=== PATIENT | male | born 1970 | race Caucasian/White ===

== ENCOUNTER 2017-05-10 15:05 | Inpatient (IN) | payer OTHER ==
[2017-05-10 15:29] VITALS: BMI 28.1
--- NOTE | 2017-05-10 20:07 | CP.PCM.HP ---
History of Present Illness - History of Present Illness History of Present Illness: 46 yo male with no significant PMH fell on top of a dumpster truck about 10 feet high landing on his left side. Following his fall were heavy metals which landed on his legs. Patient sustained fracture of right femural shaft and left femural neck. He was brought to [facility] where he had retrograde IM nailing of the right femural fracture and ORIF of the left femural neck fracture. He was brought here to [facility] for acute rehab. Present on Admission - Present on Admission Any Indicators Present on Admission: No History of DVT/PE: No History of Uncontrolled Diabetes: No Urinary Catheter: No Decubitus Ulcer Present: No Review of Systems - Review of Systems All systems: reviewed and no additional remarkable complaints except (aside from those mentioned above 14 point system review were negative by me) Past Patient History - Infectious Disease Hx of Infectious Diseases: None - Tetanus Immunizations Tetanus Immunization: Unknown - Past Medical History & Family History Past Medical History?: No - Past Social History Smoking Status: Heavy Smoker > 10 Cigarettes Daily Alcohol: None Drugs: Cannabis Home Situation {Lives}: With Family - PULMONARY Hx Respiratory Disorders: No - NEUROLOGICAL Hx Neurological Disorder: No - HEENT Hx HEENT Problems: No - RENAL Hx Chronic Kidney Disease: No - ENDOCRINE/METABOLIC Hx Endocrine Disorders: No - HEMATOLOGICAL/ONCOLOGICAL Hx Blood Disorders: No - INTEGUMENTARY Hx Dermatological Problems: Yes Other/Comment: Lipoma right forearm - MUSCULOSKELETAL/RHEUMATOLOGICAL Hx Musculoskeletal Disorders: No - GASTROINTESTINAL Hx Gastrointestinal Disorders: No - GENITOURINARY/GYNECOLOGICAL Hx Genitourinary Disorders: No - PSYCHIATRIC Hx Psychophysiologic Disorder: No Hx Substance Use: No - SURGICAL HISTORY Hx Surgeries: No - ANESTHESIA Hx Anesthesia: No Meds Allergies/Adverse Reactions: Allergies Allergy/AdvReac Type Severity Reaction Status Date / Time No Known Allergies Allergy Verified 09/27/15 13:21 Physical Exam - Constitutional Appears: No Acute Distress - Head Exam Head Exam: ATRAUMATIC - Eye Exam Eye Exam: absent: Scleral icterus - ENT Exam ENT Exam: Mucous Membranes Moist - Neck Exam Neck exam: Negative for: Meningismus - Respiratory Exam Respiratory Exam: absent: Rhonchi, Wheezes, Respiratory Distress - Cardiovascular Exam Cardiovascular Exam: REGULAR RHYTHM, +S1, +S2 - GI/Abdominal Exam GI & Abdominal Exam: Soft. absent: Tenderness - Rectal Exam Rectal Exam: Deferred - Extremities Exam Extremities exam: Negative for: full ROM (limited ROM on both LE) - Back Exam Back exam: absent: tenderness - Psychiatric Exam Psychiatric exam: Normal Affect - Skin Skin Exam: Dry, Intact Assessment & Plan - Assessment and Plan (Free Text) Assessment: 46 yo male with no significant PMH fell on top of a dumpster truck about 10 feet high landing on his left side. Following his fall were heavy metals which landed on his legs. Patient sustained fracture of right femural shaft and left femural neck. He was brought to [facility] where he had retrograde IM nailing of the right femural fracture and ORIF of the left femural neck fracture. He was brought here to [facility] for acute rehab. 1. Bilateral Femural Fracture physiatry consult with Dr Subramanian for PT/OT evaluation and management pain management 2. DVT prophylaxis Lovenox 40mg SC daily
[2017-05-10] MEDS: oxyCODONE 10 mg ER Tab (oxyCONTIN) PO SCH (22:17)
[2017-05-11 06:41] LABS: HEMOGLOBIN 10.8 g/dL (12.0-18.0); MEAN CELL VOLUME 85.3 fl (80.0-94.0); MEAN CORPUSCULAR HEMOGLOBIN 27.6 pg (27.0-31.0); MEAN CORPUSCULAR HGB CONC 32.3 g/dL (33.0-37.0); RBC 3.92 Mil/uL (4.40-5.90); RED CELL DISTRIBUTION WIDTH 13.9 % (11.5-14.5); WHITE BLOOD COUNT 17.7 K/uL (4.8-10.8)
[2017-05-11 06:48] LABS: ALB/GLOB RATIO 1.1 (1.0-2.1); ALBUMIN 3.7 g/dL (3.5-5.0); ALT/SGPT 108 U/L (21-72); AST/SGOT 59 U/L (17-59); BLOOD UREA NITROGEN 14 mg/dl (9-20); CALCIUM 8.9 mg/dL (8.4-10.2); GFR AFRICAN-AMERICAN > 60; GFR NON-AFRICAN AMERICAN > 60
[2017-05-11] MEDS: oxyCODONE 10 mg ER Tab (oxyCONTIN) PO SCH ×2 (08:03→20:32)
[2017-05-11] MEDS: Enoxaparin 40 mg Syringe SC SCH (08:05)
[2017-05-11 15:58] LABS: URINE BILIRUBIN NEGATIVE (NEGATIVE); URINE BLOOD NEGATIVE (NEGATIVE); URINE CLARITY CLEAR (Clear); URINE COLOR YELLOW (YELLOW); URINE GLUCOSE (UA) NEG (Normal); URINE LEUKOCYTE ESTERASE NEG Leu/uL (Negative); URINE PROTEIN NEGATIVE (NEGATIVE)
--- NOTE | 2017-05-11 17:46 | PCM.OPOC ---
Physiatry Overall Plan of Care - Overall Plan of Care Estimated Length of Stay in Weeks: 3 Rehab Impairment: Mobility, Gait, Balance Etiologic Diagnosis: Hip/Knee Surgery Rehab/Medical Prognosis: Fair - Anticipated Interventions Physical Therapy:: Yes Occupational Therapy:: Yes Speech Therapy:: No Recreational Therapy:: Yes - Therapy Goals Bed Mobility: Supervision Ambulation: Supervision Functional Positional Changes:: Supervision - Discharge Plan Identification of Barriers to Discharge: Home Situation (many steps) Discharge Destination: Home
--- NOTE | 2017-05-11 17:48 | CP.PCM.CON ---
History of Present Illness - History of Present Illness History of Present Illness: Dr Subramanian PMR consultation on Janes Mccoy, born 1970,who has been admitted to [facility] for acute inpatient rehabilitation following a fall with bilateral femoral fractures for which he underwent ORIF/nailing. WBAT right LE and TTWB left LE Review of Systems - Constitutional Constitutional: absent: Anorexia, Chills - EENT Eyes: absent: Blind Spots, Blurred Vision Ears: absent: Decreased Hearing, Ear Discharge Nose/Mouth/Throat: absent: Nasal Congestion - Cardiovascular Cardiovascular: absent: Chest Pain, Dyspnea on Exertion - Respiratory Respiratory: absent: Dyspnea, Hemoptysis - Gastrointestinal Gastrointestinal: absent: Belching, Constipation - Musculoskeletal Musculoskeletal: Abnormal Gait, Muscle Weakness - Integumentary Integumentary: Other (surgical incisions bilateral LE). absent: Bleeding Lesions - Neurological Neurological: absent: Abnormal Movements, Confusion, Disequilibrium, Numbness - Psychiatric Psychiatric: absent: Anxiety Past Patient History - Infectious Disease Hx of Infectious Diseases: None - Tetanus Immunizations Tetanus Immunization: Unknown - Past Medical History & Family History Past Medical History?: No - Past Social History Smoking Status: Heavy Smoker > 10 Cigarettes Daily Drugs: Cannabis Home Situation {Lives}: With Family (+ steps) - CARDIAC Other/Comment: orthostatic hypotension - PULMONARY Hx Respiratory Disorders: No - NEUROLOGICAL Hx Neurological Disorder: No - HEENT Hx HEENT Problems: No - RENAL Hx Chronic Kidney Disease: No - ENDOCRINE/METABOLIC Hx Endocrine Disorders: No - HEMATOLOGICAL/ONCOLOGICAL Hx Blood Disorders: No - INTEGUMENTARY Hx Dermatological Problems: Yes Other/Comment: Lipoma right forearm - MUSCULOSKELETAL/RHEUMATOLOGICAL Hx Musculoskeletal Disorders: No - GASTROINTESTINAL Hx Gastrointestinal Disorders: No - GENITOURINARY/GYNECOLOGICAL Hx Genitourinary Disorders: No - PSYCHIATRIC Hx Psychophysiologic Disorder: No Hx Substance Use: No - SURGICAL HISTORY Hx Surgeries: No - ANESTHESIA Hx Anesthesia: No Meds Allergies/Adverse Reactions: Allergies Allergy/AdvReac Type Severity Reaction Status Date / Time No Known Allergies Allergy Verified 09/27/15 13:21 - Medications Medications: Current Medications Acetaminophen (Tylenol 325mg Tab) 975 mg PO Q6 PRN PRN Reason: Other Last Admin: 05/11/17 13:11 Dose: 975 mg Diphenhydramine HCl (Benadryl) 25 mg PO Q6H PRN PRN Reason: Itching or Sleep Docusate Sodium (Colace) 100 mg PO BID [facility] Last Admin: 05/11/17 17:01 Dose: 100 mg Enoxaparin Sodium (Lovenox) 40 mg SC DAILY [facility] PRN Reason: Protocol Last Admin: 05/11/17 08:05 Dose: 40 mg Nicotine (Nicoderm Cq) 1 patch TD DAILY [facility] Oxycodone HCl (Oxycontin Extended Release Tab) 10 mg PO Q12 [facility] Stop: 05/13/17 21:01 Last Admin: 05/11/17 08:03 Dose: 10 mg Sennosides (Senokot Tab) 17.2 mg PO HS PRN PRN Reason: Constipation Physical Exam - Constitutional Appears: Well, Non-toxic, No Acute Distress - Head Exam Head Exam: ATRAUMATIC, NORMAL INSPECTION, NORMOCEPHALIC - Eye Exam Eye Exam: EOMI Pupil Exam: NORMAL ACCOMODATION - ENT Exam ENT Exam: Mucous Membranes Moist - Respiratory Exam Respiratory Exam: NORMAL BREATHING PATTERN - Cardiovascular Exam Cardiovascular Exam: REGULAR RHYTHM - GI/Abdominal Exam GI & Abdominal Exam: absent: Distended, Firm - Extremities Exam Extremities exam: Positive for: normal inspection. Negative for: calf tenderness, joint swelling, pedal edema - Neurological Exam Neurological exam: Alert, CN II-XII Intact, Oriented x3 - Psychiatric Exam Psychiatric exam: Normal Affect, Normal Mood Results - Vital Signs Recent Vital Signs: Last Vital Signs Temp 98.2 F 05/11/17 08:35 Pulse 101 H 05/11/17 09:15 Resp 20 05/11/17 08:35 BP 141/84 05/11/17 08:35 Pulse Ox 98 05/11/17 15:10 - Labs Result Diagrams: 05/11/17 05:20 05/11/17 05:20 Labs: Laboratory Results - last 24 hr 05/11/17 05/11/17 05/11/17 05:20 05:20 15:33 WBC 17.7 H RBC 3.92 L Hgb 10.8 L Hct 33.5 L MCV 85.3 MCH 27.6 MCHC 32.3 L RDW 13.9 Plt Count 531 H Sodium 135 Potassium 4.3 Chloride 98 Carbon Dioxide 25 Anion Gap 16 BUN 14 Creatinine 1.0 Est GFR ( Amer) > 60 Est GFR (Non-Af Amer) > 60 Random Glucose 109 Calcium 8.9 Total Bilirubin 1.0 AST 59 ALT 108 H Alkaline Phosphatase 61 Total Protein 7.0 Albumin 3.7 Globulin 3.3 Albumin/Globulin Ratio 1.1 Urine Color Yellow Urine Clarity Clear Urine pH 6.0 Ur Specific [place] 1.010 Urine Protein Negative Urine Glucose (UA) Neg Urine Ketones Negative Urine Blood Negative Urine Nitrate Negative Urine Bilirubin Negative Urine Urobilinogen 2.0 Ur Leukocyte Esterase Neg Urine RBC (Auto) < 1 Urine Microscopic WBC 1 Assessment & Plan - Assessment and Plan (Free Text) Assessment: 46 year old male with bilateral femur fractures. He has had bilateral ORIF/ nailing PT/OT to continue to help increase functional independence Team conference for d/c planning Pain: controlled Vascular: no evidence of DVT GI: No evidence of constipation or diarrhea Patient is an excellent acute rehabilitation candidate and will have focused pain management, wound care, PT, OT and recreational therapy to help facilitate a safe and appropriate d/c plan
[2017-05-12] MEDS: oxyCODONE 10 mg ER Tab (oxyCONTIN) PO SCH ×2 (08:20→21:20)
[2017-05-12] MEDS: Enoxaparin 40 mg Syringe SC SCH (08:21)
--- NOTE | 2017-05-12 10:18 | CP.PCM.PN ---
Subjective - Date & Time of Evaluation Date of Evaluation: 05/12/17 Time of Evaluation: 10:00 - Subjective Subjective: Patient seen and examined. Trying to get to sleep since he was unable to sleep last night because of the noise of the other patient next door. Claimed his pain was very tolerable Objective - Vital Signs/Intake and Output Vital Signs (last 24 hours): Temp Pulse Resp BP Pulse Ox 97.9 F 90 20 137/79 98 05/12/17 09:25 05/12/17 09:25 05/12/17 09:25 05/12/17 09:25 05/12/17 09:25 - Medications Medications: Current Medications Acetaminophen (Tylenol 325mg Tab) 975 mg PO Q6 PRN PRN Reason: Other Last Admin: 05/11/17 13:11 Dose: 975 mg Diphenhydramine HCl (Benadryl) 25 mg PO Q6H PRN PRN Reason: Itching or Sleep Docusate Sodium (Colace) 100 mg PO BID [facility] Last Admin: 05/12/17 08:22 Dose: 100 mg Enoxaparin Sodium (Lovenox) 40 mg SC DAILY [facility] PRN Reason: Protocol Last Admin: 05/12/17 08:21 Dose: 40 mg Nicotine (Nicoderm Cq) 1 patch TD DAILY [facility] Last Admin: 05/12/17 08:21 Dose: 1 patch Oxycodone HCl (Oxycontin Extended Release Tab) 10 mg PO Q12 [facility] Stop: 05/13/17 21:01 Last Admin: 05/12/17 08:20 Dose: 10 mg Sennosides (Senokot Tab) 17.2 mg PO HS PRN PRN Reason: Constipation Tramadol HCl (Ultram) 50 mg PO Q4 PRN PRN Reason: Pain 5-10/10 Last Admin: 05/12/17 06:27 Dose: 50 mg - Labs Labs: 05/11/17 05:20 05/11/17 05:20 - Constitutional Appears: No Acute Distress - Head Exam Head Exam: ATRAUMATIC - Eye Exam Eye Exam: absent: Scleral icterus - ENT Exam ENT Exam: Mucous Membranes Moist - Neck Exam Neck Exam: absent: Meningismus - Respiratory Exam Respiratory Exam: absent: Rhonchi, Wheezes, Respiratory Distress - Cardiovascular Exam Cardiovascular Exam: REGULAR RHYTHM, +S1, +S2 - GI/Abdominal Exam GI & Abdominal Exam: Soft. absent: Tenderness - Rectal Exam Rectal Exam: Deferred - Extremities Exam Extremities Exam: absent: Full ROM (limited ROM on both lower extremeties) - Back Exam Back Exam: absent: tenderness - Neurological Exam Neurological Exam: Alert, Oriented x3 - Psychiatric Exam Psychiatric exam: Normal Affect - Skin Skin Exam: Dry, Intact Assessment and Plan - Assessment and Plan (Free Text) Assessment: 46 yo male with no significant PMH fell on top of a dumpster truck about 10 feet high landing on his left side. Broke both femur when heavy landed on him following the fall. Had IM nailing of the right femural fracture and ORIF of the left femural neck fracture at [facility] on 05/03/2017. 1. Bilateral Femural Fracture physiatry consult with Dr Subramanian continue PT/OT pain controlled 2. DVT prophylaxis Lovenox 40mg SC daily
[2017-05-12 11:18] LABS: BASO # 0.2 K/uL (0.0-0.2); BASO % 1.2 % (0.0-2.0); EOS # 0.4 K/uL (0.0-0.7); EOS % 2.4 % (0.0-4.0); HEMOGLOBIN 11.3 g/dL (12.0-18.0); LYMPH # 3.2 K/uL (1.0-4.3); LYMPH % 17.3 % (20.0-40.0); MEAN CELL VOLUME 85.4 fl (80.0-94.0); MEAN CORPUSCULAR HGB CONC 32.8 g/dL (33.0-37.0); MEAN PLATELET VOLUME 8.1 fl (7.2-11.7); MONO % 10.8 % (0.0-10.0); NEUT # 12.8 K/uL (1.8-7.0); NEUT % 68.3 % (50.0-75.0); NRBC % 0.1 % (0.0-0.0); PLATELET COUNT 609 K/uL (130-400); RBC 4.02 Mil/uL (4.40-5.90); WHITE BLOOD COUNT 18.7 K/uL (4.8-10.8)
[2017-05-12 12:04] LABS: BANDS 1 % (0-2); EOSINOPHIL 3 % (0-7); LYMPHOCYTE 19 % (20-50); MONOCYTE 9 % (0-10); MYELOCYTE 2 % (0-0); NEUTROPHIL 64 % (42-75); REACTIVE LYMPHOCYTES 2 % (0-0); TOTAL CELLS COUNTED 100
[2017-05-12 12:05] LABS: PLATELET ESTIMATE INCREASED (NORMAL)
[2017-05-12 12:09] LABS: ANISOCYTOSIS SLIGHT; LARGE PLATELETS PRESENT; OVALOCYTES SLIGHT; POIKILOCYTOSIS SLIGHT
--- NOTE | 2017-05-12 13:00 | RAD ---
HISTORY: Elevated WBC COMPARISON: No prior. TECHNIQUE: Chest PA and lateral FINDINGS: LUNGS: No active pulmonary disease. PLEURA: No significant pleural effusion identified. No pneumothorax apparent. CARDIOVASCULAR: Normal. OSSEOUS STRUCTURES: No significant abnormalities. VISUALIZED UPPER ABDOMEN: Nonspecific colonic gaseous distention. OTHER FINDINGS: None. IMPRESSION: No active disease.
--- NOTE | 2017-05-12 16:54 | CP.PCM.PN ---
Subjective - Date & Time of Evaluation Date of Evaluation: 05/12/17 Time of Evaluation: 16:53 - Subjective Subjective: Patient seen in the room in good spirits no BM in last 24 hours but doesn't want anything extra pain is well controlled very happy with current care to this point no numbness continue current care Objective - Vital Signs/Intake and Output Vital Signs (last 24 hours): Temp Pulse Resp BP Pulse Ox 97.9 F 90 20 137/79 98 05/12/17 09:25 05/12/17 09:25 05/12/17 09:25 05/12/17 09:25 05/12/17 09:25 - Medications Medications: Current Medications Diphenhydramine HCl (Benadryl) 25 mg PO Q6H PRN PRN Reason: Itching or Sleep Docusate Sodium (Colace) 100 mg PO BID [facility] Last Admin: 05/12/17 08:22 Dose: 100 mg Enoxaparin Sodium (Lovenox) 40 mg SC DAILY [facility] PRN Reason: Protocol Last Admin: 05/12/17 08:21 Dose: 40 mg Nicotine (Nicoderm Cq) 1 patch TD DAILY [facility] Last Admin: 05/12/17 08:21 Dose: 1 patch Oxycodone HCl (Oxycontin Extended Release Tab) 10 mg PO Q12 [facility] Stop: 05/13/17 21:01 Last Admin: 05/12/17 08:20 Dose: 10 mg Sennosides (Senokot Tab) 17.2 mg PO HS PRN PRN Reason: Constipation Tramadol HCl (Ultram) 50 mg PO Q4 PRN PRN Reason: Pain 4-10/10. - Labs Labs: 05/12/17 11:05 05/11/17 05:20
[2017-05-13] MEDS: Enoxaparin 40 mg Syringe SC SCH (08:43)
[2017-05-13] MEDS: oxyCODONE 10 mg ER Tab (oxyCONTIN) PO SCH ×2 (08:43→21:07)
[2017-05-14 07:11] LABS: MEAN CELL VOLUME 85.7 fl (80.0-94.0); MEAN CORPUSCULAR HEMOGLOBIN 28.2 pg (27.0-31.0); MEAN CORPUSCULAR HGB CONC 32.9 g/dL (33.0-37.0); RBC 3.89 Mil/uL (4.40-5.90); RED CELL DISTRIBUTION WIDTH 14.4 % (11.5-14.5); WHITE BLOOD COUNT 16.2 K/uL (4.8-10.8)
[2017-05-14 07:18] LABS: BLOOD UREA NITROGEN 14 mg/dl (9-20); GFR AFRICAN-AMERICAN > 60; GFR NON-AFRICAN AMERICAN > 60
[2017-05-14] MEDS: Enoxaparin 40 mg Syringe SC SCH (08:16)
[2017-05-14] MEDS: oxyCODONE 10 mg ER Tab (oxyCONTIN) PO SCH ×2 (08:16→21:11)
[2017-05-15] MEDS: oxyCODONE 10 mg ER Tab (oxyCONTIN) PO SCH ×2 (08:33→20:01)
[2017-05-15] MEDS: Enoxaparin 40 mg Syringe SC SCH (08:37)
--- NOTE | 2017-05-15 17:08 | CP.PCM.PN ---
Subjective - Date & Time of Evaluation Date of Evaluation: 05/15/17 Time of Evaluation: 10:15 - Subjective Subjective: Patient seen and examined. Denied any complaint but nurse claimed he had no BM for 3 days. Objective - Vital Signs/Intake and Output Vital Signs (last 24 hours): Temp Pulse Resp BP Pulse Ox 98.5 F 94 H 20 138/82 99 05/15/17 10:00 05/15/17 10:00 05/15/17 10:00 05/15/17 10:00 05/15/17 10:00 - Medications Medications: Current Medications Diphenhydramine HCl (Benadryl) 25 mg PO Q6H PRN PRN Reason: Itching or Sleep Docusate Sodium (Colace) 100 mg PO BID [facility] Last Admin: 05/15/17 16:36 Dose: 100 mg Enoxaparin Sodium (Lovenox) 40 mg SC DAILY [facility] PRN Reason: Protocol Last Admin: 05/15/17 08:37 Dose: 40 mg Nicotine (Nicoderm Cq) 1 patch TD DAILY [facility] Last Admin: 05/15/17 08:35 Dose: 1 patch Oxycodone HCl (Oxycontin Extended Release Tab) 10 mg PO Q12 [facility] Stop: 05/18/17 21:01 Sennosides (Senokot Tab) 17.2 mg PO HS [facility] Tramadol HCl (Ultram) 50 mg PO Q4 PRN PRN Reason: Pain 4-10/10. Last Admin: 05/15/17 14:53 Dose: 50 mg - Labs Labs: 05/14/17 06:30 05/14/17 06:30 - Constitutional Appears: No Acute Distress - Head Exam Head Exam: ATRAUMATIC - Eye Exam Eye Exam: absent: Scleral icterus - ENT Exam ENT Exam: Mucous Membranes Moist - Neck Exam Neck Exam: absent: Meningismus - Respiratory Exam Respiratory Exam: absent: Rhonchi, Wheezes, Respiratory Distress - Cardiovascular Exam Cardiovascular Exam: REGULAR RHYTHM, +S1, +S2 - GI/Abdominal Exam GI & Abdominal Exam: Soft. absent: Tenderness - Rectal Exam Rectal Exam: Deferred - Neurological Exam Neurological Exam: Alert, Oriented x3 - Psychiatric Exam Psychiatric exam: Normal Affect - Skin Skin Exam: Dry, Intact Assessment and Plan - Assessment and Plan (Free Text) Assessment: 46 yo male with no significant PMH fell on top of a dumpster truck about 10 feet high landing on his left side. Broke both femur when heavy landed on him following the fall. Had IM nailing of the right femural fracture and ORIF of the left femural neck fracture at [facility] on 05/03/2017. 1. Bilateral Femural Fracture physiatry consult with Dr Moris starr PT/OT pain tolerable 2. DVT prophylaxis Lovenox 40mg SC daily
[2017-05-16] MEDS: Enoxaparin 40 mg Syringe SC SCH (08:35)
[2017-05-16] MEDS: oxyCODONE 10 mg ER Tab (oxyCONTIN) PO SCH ×2 (08:37→21:09)
--- NOTE | 2017-05-16 13:08 | PSY.TMCNF ---
Nursing - Vital Signs Vital Signs (Last 8 hours): Vital Signs 05/16/17 07:56 Temperature 97.9 F Pulse Rate 86 Respiratory 20 Rate Blood Pressure 134/76 O2 Sat by Pulse 100 Oximetry Pain: 4 - Medications/Other Issues Comment: to follow as per nutrition protocol - Skin Incision Site: Bilateral upper thigh Dressing Status: Changed Incision: Sutures Intact, No Drainage Noted Incision Line Treatment: Cleanse with NS and cover with dry dressing then paper tape. - Bladder Management Bladder Pattern: Normal Voiding Method: Toilet, Urinal - Bowel Management Bowel Pattern: Constipated - Goals/Time Frame Comments: Pt was seen awake and alert sitting in his wheelchair in his room. Pt agreeable to evaluation session. Pt reported that his nickname that his friends call him is "Bernie"Pt was able to identify his leisure interests such as playing [id number], cards, spending time with family/friends, watching television , and likes crossword puzzles. Pt reported he does not have much time for leisure activities 2' work. Pt stated that he fell at work and that his job requires physical endurance and strength. Pt's mood was stable-positive throughout visit. Physical Therapy - Bed Mobility Bed Mobility: Supervision, Verbal Cues Comment: with use of trapeze. CG/min A to lift LLE back into bed - Transfers Wheelchair to Mat: Supervision, Verbal Cues Sit to Stand: Supervision, Verbal Cues Comment: crutches and RW - Ambulation Level of Assistance: Supervision, Verbal Cues, Contact Guard Distance (ft.): 125 Assistive Devices: Crutches, Rolling Walker Orthoses: n/a Comment: -125 feet with RW with CS, VCs to properly adhere to 30lb weight bearing LLE and to complete step to pattern leading with LLE; very slow gait speed. -125 feet with B axillary crutches. -educated patient on 3 point step to gait pattern; patient combines 4 point pattern and 3 point pattern requiring frequent cues to recall to place LLE anterior before RLE and to adhere to weight bearing precautions as ordered by surgeon. -slow gait with VCs for reduced leaning on crutches in axillary; cues for upright gaze and hip extension - Stair Negotiation Stairs: Level of Assistance: Supervision, Verbal Cues, Contact Guard Stairs: Assistive Devices: Left Handrail, Right Handrail, Crutches Comment: -asc/desc 2 8inch steps with L rail on ascent/crutch on R and then R rail on descent/crutch on L to mimic home set-up; patient did so with step to pattern ascending with RLE first and descend with LLE first --> demonstrated safety and then negotiated 1 full flight of 8 inch steps. -very slow speed with repeated cues and education to adhere to proper sequencing and ensure he is not placing too much weight on LLE - Standing Balance Static Stand: Supervision Dynamic Stand: Supervision, Contact Guard Assist - Pain Management Techniques: Medication - Insight/Carryover Insight/Carryover: Good - Patient/Family Education Comment: WBing education, pain mgmt - Assessment/Plan Assessment: precautions TTWBing LLE, WBAT R LE. -Patient is 46 yo m undergoing acute rehab at [facility] s/p bilateral femoral fracture. Pt presents with pain B LEs and pain (L) forearm, impaired coordination and dynamic standing balance affecting patient's ability to complete his self care routine safely and effectively. Mr. Mccoy will benefit from skilled OT services 5-6x/ week to improve patient's dynamic standing balance , activity tolerance and improve pain levels which primarily inhibit pts standing tolerance . Pt will also benefit from DME training to reduce risk of patient falling at home and improve (I) with iadls . - Goals Timeframe: 2 weeks Goals: mod I transfers. Mod I functional mobility. Mod I self care. Mod I toileting. Mod I light home mgmt - Provider Therapist: Lili Vickers PT, DPT License Number: [id number] Occupational Therapy - Arousal/Attention/Orientation Patient Orientation: Person, Place, Time, Appropriate to Age, Appropriate to Situation - ADL/IADL Self Feeding: Set-up Help Grooming: Set-up Help Bathing-Upper Extremity: Supervision Bathing-Lower Extremity: Minimal Assistance Dressing-Upper Extremity: Set-up Help Dressing-Lower Extremity: Minimal Assistance - Sitting Balance Static Sitting: Independent without upper extremity support Dynamic Sitting: Requires supervision - Transfers Wheelchair to Bed Transfers: Supervision Toilet Transfers: Supervision - Wheelchair Management Level of Assistance: Not Applicable - Upper Extremity Status Right Upper Extremity Comment: WFL Left Upper Extremity Comment: WFL - Pain Alleviating Techniques: Medication - Insight/Carryover Insight/Carryover: Good - Patient/Family Education Comment: WBing education, pain mgmt - Assessment/Plan Assessment: precautions TTWBing LLE, WBAT R LE. -Patient is 46 yo m undergoing acute rehab at [facility] s/ bilateral femoral fracture. Pt presents with pain B LEs and pain (L) forearm, impaired coordination and dynamic standing balance affecting patient's ability to complete his self care routine safely and effectively. Mr. Mccoy will benefit from skilled OT services 5-6x/ week to improve patient's dynamic standing balance , activity tolerance and improve pain levels which primarily inhibit pts standing tolerance . Pt will also benefit from DME training to reduce risk of patient falling at home and improve (I) with iadls . - Goals Timeframe: 2 weeks Goals: mod I transfers. Mod I functional mobility. Mod I self care. Mod I toileting. Mod I light home mgmt - Provider Therapist: DAMI Bowens/Naomi License Number: [id number] Speech Therapy - Plan Assessment: precautions TTWBing LLE, WBAT R LE. -Patient is 46 yo m undergoing acute rehab at [facility]/ bilateral femoral fracture. Pt presents with pain B LEs and pain (L) forearm, impaired coordination and dynamic standing balance affecting patient's ability to complete his self care routine safely and effectively. Mr. Mccoy will benefit from skilled OT services 5-6x/ week to improve patient's dynamic standing balance , activity tolerance and improve pain levels which primarily inhibit pts standing tolerance . Pt will also benefit from DME training to reduce risk of patient falling at home and improve (I) with iadls . Recreational Therapy - Participation Participation: Participates in Individual and/or Group Sessions, Monitors His/ Her Own Leisure Time - Attendance Attendance: 3-5 times per week - Activities Leisure Activities: Cards and Games - Socialization Level of Socialization: Initiates/interacts freely with care givers and peer - Diversional Time Diversional Time: television, dominoes - Assessment Assessment/Plan: precautions TTWBing LLE, WBAT R LE. -Patient is 46 yo m undergoing acute rehab at [facility] s/ bilateral femoral fracture. Pt presents with pain B LEs and pain (L) forearm, impaired coordination and dynamic standing balance affecting patient's ability to complete his self care routine safely and effectively. Mr. Mccoy will benefit from skilled OT services 5-6x/ week to improve patient's dynamic standing balance , activity tolerance and improve pain levels which primarily inhibit pts standing tolerance . Pt will also benefit from DME training to reduce risk of patient falling at home and improve (I) with iadls . - Provider Therapist: Libertad Cunningham, [employer] #[id number] Nutrition - Current Diet Current Diet/ Supplement/ Feedings: Regular diet - Appetite Percent Meal Consumed: 75-100% - Assessment/Goals/Time Frame Assessment/Goals/Time Frame: to follow as per nutrition protocol - Provider Provider: Kiana Rogers RD Case Management - Discharge Plan Discharge Plan: Home alone Rehabilitation Plan - Treatment Plan Treatment Plan: Physical Therapy, Occupational Therapy, Dietary, Patient/Family Education - Discharge Plan Estimated Date of Discharge: 05/23/17 Discharge to: Home
--- NOTE | 2017-05-16 14:04 | CP.PCM.PN ---
Subjective - Date & Time of Evaluation Date of Evaluation: 05/16/17 Time of Evaluation: 14:04 - Subjective Subjective: Patient seen in room pain is controlled denies sob/cp no fever continue current care Objective - Vital Signs/Intake and Output Vital Signs (last 24 hours): Temp Pulse Resp BP Pulse Ox 97.9 F 86 20 134/76 100 05/16/17 07:56 05/16/17 07:56 05/16/17 07:56 05/16/17 07:56 05/16/17 07:56 - Medications Medications: Current Medications Diphenhydramine HCl (Benadryl) 25 mg PO Q6H PRN PRN Reason: Itching or Sleep Docusate Sodium (Colace) 100 mg PO BID [facility] Last Admin: 05/16/17 08:35 Dose: 100 mg Enoxaparin Sodium (Lovenox) 40 mg SC DAILY [facility] PRN Reason: Protocol Last Admin: 05/16/17 08:35 Dose: 40 mg Nicotine (Nicoderm Cq) 1 patch TD DAILY [facility] Last Admin: 05/16/17 08:35 Dose: 1 patch Oxycodone HCl (Oxycontin Extended Release Tab) 10 mg PO Q12 [facility] Stop: 05/18/17 21:01 Last Admin: 05/16/17 08:37 Dose: 10 mg Sennosides (Senokot Tab) 17.2 mg PO HS [facility] Last Admin: 05/15/17 21:10 Dose: 17.2 mg Tramadol HCl (Ultram) 50 mg PO Q4 PRN PRN Reason: Pain 4-1010. Last Admin: 05/16/17 09:45 Dose: 50 mg - Labs Labs: 05/14/17 06:30 05/14/17 06:30
[2017-05-17 06:29] LABS: HEMOGLOBIN 11.3 g/dL (12.0-18.0); MEAN CELL VOLUME 85.9 fl (80.0-94.0); MEAN CORPUSCULAR HEMOGLOBIN 27.5 pg (27.0-31.0); RBC 4.11 Mil/uL (4.40-5.90); RED CELL DISTRIBUTION WIDTH 14.8 % (11.5-14.5)
[2017-05-17 07:00] LABS: BLOOD UREA NITROGEN 14 mg/dl (9-20); CALCIUM 9.2 mg/dL (8.4-10.2); GFR AFRICAN-AMERICAN > 60; GFR NON-AFRICAN AMERICAN > 60
[2017-05-17] MEDS: oxyCODONE 10 mg ER Tab (oxyCONTIN) PO SCH ×2 (08:30→21:16)
[2017-05-17] MEDS: Enoxaparin 40 mg Syringe SC SCH (08:31)
--- NOTE | 2017-05-17 11:10 | CP.PCM.PN ---
Subjective - Date & Time of Evaluation Date of Evaluation: 05/17/17 Time of Evaluation: 10:15 - Subjective Subjective: Patient was seen and examined in bed today. He has no complaints. States his pain is well controlled and he is able to sleep better. Objective - Vital Signs/Intake and Output Vital Signs (last 24 hours): Temp Pulse Resp BP Pulse Ox 98.1 F 95 H 20 127/80 99 05/17/17 07:53 05/17/17 07:53 05/17/17 07:53 05/17/17 07:53 05/17/17 07:53 - Medications Medications: Current Medications Diphenhydramine HCl (Benadryl) 25 mg PO Q6H PRN PRN Reason: Itching or Sleep Docusate Sodium (Colace) 100 mg PO BID [facility] Last Admin: 05/17/17 08:31 Dose: 100 mg Enoxaparin Sodium (Lovenox) 40 mg SC DAILY [facility] PRN Reason: Protocol Last Admin: 05/17/17 08:31 Dose: 40 mg Nicotine (Nicoderm Cq) 1 patch TD DAILY [facility] Last Admin: 05/17/17 08:32 Dose: 1 patch Oxycodone HCl (Oxycontin Extended Release Tab) 10 mg PO Q12 [facility] Stop: 05/18/17 21:01 Last Admin: 05/17/17 08:30 Dose: 10 mg Sennosides (Senokot Tab) 17.2 mg PO HS [facility] Last Admin: 05/16/17 21:12 Dose: 17.2 mg Tramadol HCl (Ultram) 50 mg PO Q4 PRN PRN Reason: Pain 4-10/10. Last Admin: 05/17/17 09:34 Dose: 50 mg - Labs Labs: 05/17/17 05:35 05/17/17 05:35 - Additional Findings Additional findings: Physical exam: Constitutional- cooperative, awake, alert Head- NCAT, PERRL Eye- PERRL, EOMI ENT- normal exam, MMM. Neck- normal inspection, supple, no JVD Respiratory- CTAB, no wheezes rales rhonchi Cardiovascular- RRR, +S1, +S2 no MRG GI/Abdominal- normal bowel sounds, soft, no mass, no hsm Skin- warm, dry Extremities Exam- + Limited ROM both lower extremities. normal capillary refill Neurological Exam- alert, awake, oriented Psych- normal mood, normal affect Assessment and Plan - Assessment and Plan (Free Text) Plan: 46 yo male with no significant PMH fell on top of a dumpster truck about 10 feet high landing on his left side. Broke both femur when heavy landed on him following the fall. Had IM nailing of the right femural fracture and ORIF of the left femural neck fracture at [facility] on 05/03/2017. Now at [facility] for acute rehabilitation. 1. Bilateral Femural Fracture physiatry consult with Dr Moris starr PT/OT pain controlled 2. DVT prophylaxis Lovenox 40mg SC daily
--- NOTE | 2017-05-17 16:40 | CP.PCM.PN ---
Subjective - Date & Time of Evaluation Date of Evaluation: 05/17/17 Time of Evaluation: 16:39 - Subjective Subjective: Patient seen in room pain is controlled I started to remove sutures but they are very tight There are quite a lot and I will defer to the surgeon I will help facilitate a sooner follow up Objective - Vital Signs/Intake and Output Vital Signs (last 24 hours): Temp Pulse Resp BP Pulse Ox 98.1 F 95 H 20 127/80 99 05/17/17 07:53 05/17/17 07:53 05/17/17 07:53 05/17/17 07:53 05/17/17 07:53 - Medications Medications: Current Medications Diphenhydramine HCl (Benadryl) 25 mg PO Q6H PRN PRN Reason: Itching or Sleep Docusate Sodium (Colace) 100 mg PO BID [facility] Last Admin: 05/17/17 08:31 Dose: 100 mg Enoxaparin Sodium (Lovenox) 40 mg SC DAILY [facility] PRN Reason: Protocol Last Admin: 05/17/17 08:31 Dose: 40 mg Nicotine (Nicoderm Cq) 1 patch TD DAILY [facility] Last Admin: 05/17/17 08:32 Dose: 1 patch Oxycodone HCl (Oxycontin Extended Release Tab) 10 mg PO Q12 [facility] Stop: 05/18/17 21:01 Last Admin: 05/17/17 08:30 Dose: 10 mg Sennosides (Senokot Tab) 17.2 mg PO HS [facility] Last Admin: 05/16/17 21:12 Dose: 17.2 mg Tramadol HCl (Ultram) 50 mg PO Q4 PRN PRN Reason: Pain 4-10/10. Last Admin: 05/17/17 13:50 Dose: 50 mg - Labs Labs: 05/17/17 05:35 05/17/17 05:35
[2017-05-18] MEDS: oxyCODONE 10 mg ER Tab (oxyCONTIN) PO SCH ×2 (08:35→20:13)
[2017-05-18] MEDS: Enoxaparin 40 mg Syringe SC SCH (08:36)
[2017-05-19] MEDS: Enoxaparin 40 mg Syringe SC SCH (08:45)
[2017-05-19] MEDS: oxyCODONE 10 mg ER Tab (oxyCONTIN) PO SCH ×2 (08:49→21:28)
--- NOTE | 2017-05-19 15:25 | CP.PCM.PN ---
Subjective - Date & Time of Evaluation Date of Evaluation: 05/19/17 Time of Evaluation: 10:00 - Subjective Subjective: Patient was seen and examind in bed. States he has minimal pain to right leg today but it is controlled with pain medications.Sutures to be removed during orthopedic appointment. Denies cp/fever/n/v/d/headache, HD stable, NAD. Objective - Vital Signs/Intake and Output Vital Signs (last 24 hours): Temp Pulse Resp BP Pulse Ox 98.1 F 96 H 20 132/79 100 05/19/17 08:31 05/19/17 08:31 05/19/17 08:31 05/19/17 08:31 05/19/17 08:31 - Medications Medications: Current Medications Diphenhydramine HCl (Benadryl) 25 mg PO Q6H PRN PRN Reason: Itching or Sleep Docusate Sodium (Colace) 100 mg PO BID [facility] Last Admin: 05/19/17 08:49 Dose: 100 mg Enoxaparin Sodium (Lovenox) 40 mg SC DAILY [facility] PRN Reason: Protocol Last Admin: 05/19/17 08:45 Dose: 40 mg Nicotine (Nicoderm Cq) 1 patch TD DAILY [facility] Last Admin: 05/19/17 08:46 Dose: 1 patch Oxycodone HCl (Oxycontin Extended Release Tab) 10 mg PO Q12 [facility] Stop: 05/21/17 21:01 Last Admin: 05/19/17 08:49 Dose: 10 mg Sennosides (Senokot Tab) 17.2 mg PO HS [facility] Last Admin: 05/18/17 21:19 Dose: Not Given Tramadol HCl (Ultram) 50 mg PO Q4 PRN PRN Reason: Pain 4-10/10. Last Admin: 05/18/17 19:04 Dose: 50 mg - Labs Labs: 05/17/17 05:35 05/17/17 05:35 - Additional Findings Additional findings: Physical exam: Constitutional- cooperative, awake, alert Head- NCAT, PERRL Eye- PERRL, EOMI ENT- normal exam, MMM. Neck- normal inspection, supple, no JVD Respiratory- CTAB, no wheezes rales rhonchi Cardiovascular- RRR, +S1, +S2 no MRG GI/Abdominal- normal bowel sounds, soft, no mass, no hsm Skin- warm, dry Extremities Exam- + Limited ROM both lower extremities. normal capillary refill Neurological Exam- alert, awake, oriented Psych- normal mood, normal affect Assessment and Plan - Assessment and Plan (Free Text) Plan: 46 yo male with no significant PMH fell on top of a dumpster truck about 10 feet high landing on his left side. Broke both femur when heavy landed on him following the fall. Had IM nailing of the right femural fracture and ORIF of the left femural neck fracture at [facility] on 05/03/2017. Now at [facility] for acute rehabilitation. 1. Bilateral Femural Fracture physiatry consult with Dr Moris starr PT/OT pain controlled with oxycodone and ultram 2. DVT prophylaxis Lovenox 40mg SC daily
--- NOTE | 2017-05-19 17:41 | CP.PCM.PN ---
Subjective - Date & Time of Evaluation Date of Evaluation: 05/19/17 Time of Evaluation: 17:40 - Subjective Subjective: Patient seen in room NAD did well in therapies ambulating 300' ax crutches. continue current care pain controlled Objective - Vital Signs/Intake and Output Vital Signs (last 24 hours): Temp Pulse Resp BP Pulse Ox 98.1 F 96 H 20 132/79 100 05/19/17 08:31 05/19/17 08:31 05/19/17 08:31 05/19/17 08:31 05/19/17 08:31 - Medications Medications: Current Medications Diphenhydramine HCl (Benadryl) 25 mg PO Q6H PRN PRN Reason: Itching or Sleep Docusate Sodium (Colace) 100 mg PO BID [facility] Last Admin: 05/19/17 17:15 Dose: 100 mg Enoxaparin Sodium (Lovenox) 40 mg SC DAILY [facility] PRN Reason: Protocol Last Admin: 05/19/17 08:45 Dose: 40 mg Nicotine (Nicoderm Cq) 1 patch TD DAILY [facility] Last Admin: 05/19/17 08:46 Dose: 1 patch Oxycodone HCl (Oxycontin Extended Release Tab) 10 mg PO Q12 [facility] Stop: 05/21/17 21:01 Last Admin: 05/19/17 08:49 Dose: 10 mg Sennosides (Senokot Tab) 17.2 mg PO HS [facility] Last Admin: 05/18/17 21:19 Dose: Not Given Tramadol HCl (Ultram) 50 mg PO Q4 PRN PRN Reason: Pain 4-10/10. Last Admin: 05/19/17 15:34 Dose: 50 mg - Labs Labs: 05/17/17 05:35 05/17/17 05:35
[2017-05-20 07:09] LABS: MEAN CELL VOLUME 85.2 fl (80.0-94.0); MEAN CORPUSCULAR HEMOGLOBIN 28.3 pg (27.0-31.0); MEAN CORPUSCULAR HGB CONC 33.2 g/dL (33.0-37.0); RBC 4.25 Mil/uL (4.40-5.90); RED CELL DISTRIBUTION WIDTH 14.6 % (11.5-14.5); WHITE BLOOD COUNT 9.9 K/uL (4.8-10.8)
[2017-05-20 07:15] LABS: BLOOD UREA NITROGEN 12 mg/dl (9-20); CALCIUM 9.4 mg/dL (8.4-10.2); GFR AFRICAN-AMERICAN > 60; GFR NON-AFRICAN AMERICAN > 60
[2017-05-20] MEDS: oxyCODONE 10 mg ER Tab (oxyCONTIN) PO SCH ×2 (08:20→21:11)
[2017-05-20] MEDS: Enoxaparin 40 mg Syringe SC SCH (08:22)
[2017-05-21] MEDS: oxyCODONE 10 mg ER Tab (oxyCONTIN) PO SCH ×2 (08:38→21:18)
[2017-05-21] MEDS: Enoxaparin 40 mg Syringe SC SCH (08:39)
[2017-05-22] MEDS: oxyCODONE 10 mg ER Tab (oxyCONTIN) PO SCH ×2 (08:41→20:31)
[2017-05-22] MEDS: Enoxaparin 40 mg Syringe SC SCH (08:42)
--- NOTE | 2017-05-22 18:22 | CP.PCM.PN ---
Subjective - Date & Time of Evaluation Date of Evaluation: 05/22/17 Time of Evaluation: 18:21 - Subjective Subjective: Patient seen in the room pain is present but well tolerated he is set for d/c home tomorrow and will follow up with orthopedics the following week to remove sutures which it was confirmed are ok to wait until that time Objective - Vital Signs/Intake and Output Vital Signs (last 24 hours): Temp Pulse Resp BP Pulse Ox 97.7 F 99 H 20 143/77 100 05/22/17 08:06 05/22/17 08:06 05/22/17 08:06 05/22/17 08:06 05/22/17 08:06 - Medications Medications: Current Medications Diphenhydramine HCl (Benadryl) 25 mg PO Q6H PRN PRN Reason: Itching or Sleep Docusate Sodium (Colace) 100 mg PO BID [facility] Last Admin: 05/22/17 16:57 Dose: 100 mg Enoxaparin Sodium (Lovenox) 40 mg SC DAILY [facility] PRN Reason: Protocol Last Admin: 05/22/17 08:42 Dose: 40 mg Nicotine (Nicoderm Cq) 1 patch TD DAILY [facility] Last Admin: 05/22/17 08:42 Dose: 1 patch Oxycodone HCl (Oxycontin Extended Release Tab) 10 mg PO Q12 [facility] Stop: 05/24/17 21:01 Last Admin: 05/22/17 08:41 Dose: 10 mg Sennosides (Senokot Tab) 17.2 mg PO HS [facility] Last Admin: 05/21/17 21:19 Dose: Not Given Tramadol HCl (Ultram) 50 mg PO Q4 PRN PRN Reason: Pain 4-12/20. Last Admin: 05/22/17 13:37 Dose: 50 mg - Labs Labs: 05/20/17 05:20 05/20/17 05:20
[2017-05-23] MEDS: Enoxaparin 40 mg Syringe SC SCH (08:20)
[2017-05-23] MEDS: oxyCODONE 10 mg ER Tab (oxyCONTIN) PO SCH (08:22)
[2017-05-23 08:32] VITALS: BP 116/76; PULSE 96; RESP 22; TEMP 98.5; O2SAT 100
--- NOTE | 2017-05-23 11:21 | CP.PCM.DIS ---
Provider - Provider Date of Admission: 05/10/17 19:44 Attending physician: Ian Dallas MD Consults: Dr Subramanian Time Spent in preparation of Discharge (in minutes): 25 Diagnosis - Discharge Diagnosis (1) Bilateral femoral fractures Status: Acute Comment: continue PT/OT as outpatient. continue pain management Hospital Course - Lab Results Lab Results: Micro Results 05/11/17 15:33 Urine,Clean Catch Urine Culture - Final No Growth (<1,000 CFU/ML) Most Recent Lab Values WBC 9.9 K/uL (4.8-10.8) 05/20/17 05:20 RBC 4.25 Mil/uL (4.40-5.90) L 05/20/17 05:20 Hgb 12.0 g/dL (12.0-18.0) 05/20/17 05:20 Hct 36.2 % (35.0-51.0) 05/20/17 05:20 MCV 85.2 fl (80.0-94.0) 05/20/17 05:20 MCH 28.3 pg (27.0-31.0) 05/20/17 05:20 MCHC 33.2 g/dL (33.0-37.0) 05/20/17 05:20 RDW 14.6 % (11.5-14.5) H 05/20/17 05:20 Plt Count 653 K/uL (130-400) H 05/20/17 05:20 MPV 8.1 fl (7.2-11.7) 05/12/17 11:05 Neut % (Auto) 68.3 % (50.0-75.0) 05/12/17 11:05 Lymph % (Auto) 17.3 % (20.0-40.0) L 05/12/17 11:05 [place] % (Auto) 10.8 % (0.0-10.0) H 05/12/17 11:05 Eos % (Auto) 2.4 % (0.0-4.0) 05/12/17 11:05 Baso % (Auto) 1.2 % (0.0-2.0) 05/12/17 11:05 Neut # (Auto) 12.8 K/uL (1.8-7.0) H 05/12/17 11:05 Lymph # (Auto) 3.2 K/uL (1.0-4.3) 05/12/17 11:05 [place] # (Auto) 2.0 K/uL (0.0-0.8) H 05/12/17 11:05 Eos # (Auto) 0.4 K/uL (0.0-0.7) 05/12/17 11:05 Baso # (Auto) 0.2 K/uL (0.0-0.2) 05/12/17 11:05 Neutrophils % (Manual) 64 % (42-75) 05/12/17 11:05 Band Neutrophils % 1 % (0-2) 05/12/17 11:05 Lymphocytes % (Manual) 19 % (20-50) L 05/12/17 11:05 Reactive Lymphs % 2 % (0-0) H 05/12/17 11:05 Monocytes % (Manual) 9 % (0-10) 05/12/17 11:05 Eosinophils % (Manual) 3 % (0-7) 05/12/17 11:05 Myelocytes % 2 % (0-0) H 05/12/17 11:05 Platelet Estimate Increased (NORMAL) H 05/12/17 11:05 Large Platelets Present 05/12/17 11:05 Poikilocytosis (manual Slight 05/12/17 11:05 Anisocytosis (manual) Slight 05/12/17 11:05 Ovalocytes Slight 05/12/17 11:05 Sodium 142 mmol/l (132-148) 05/20/17 05:20 Potassium 4.7 MMOL/L (3.6-5.0) 05/20/17 05:20 Chloride 102 mmol/L (98-107) 05/20/17 05:20 Carbon Dioxide 27 mmol/L (22-30) 05/20/17 05:20 Anion Gap 18 (10-20) 05/20/17 05:20 BUN 12 mg/dl (9-20) 05/20/17 05:20 Creatinine 0.9 mg/dl (0.8-1.5) 05/20/17 05:20 Est GFR ( Amer) > 60 05/20/17 05:20 Est GFR (Non-Af Amer) > 60 05/20/17 05:20 Random Glucose 107 mg/dL (75-110) 05/20/17 05:20 Calcium 9.4 mg/dL (8.4-10.2) 05/20/17 05:20 Total Bilirubin 1.0 mg/dl (0.2-1.3) 05/11/17 05:20 AST 59 U/L (17-59) 05/11/17 05:20 ALT 108 U/L (21-72) H 05/11/17 05:20 Alkaline Phosphatase 61 U/L (38-126) 05/11/17 05:20 Total Protein 7.0 G/DL (6.3-8.2) 05/11/17 05:20 Albumin 3.7 g/dL (3.5-5.0) 05/11/17 05:20 Globulin 3.3 gm/dL (2.2-3.9) 05/11/17 05:20 Albumin/Globulin Ratio 1.1 (1.0-2.1) 05/11/17 05:20 Urine Color Yellow (YELLOW) 05/11/17 15:33 Urine Clarity Clear (Clear) 05/11/17 15:33 Urine pH 6.0 (5.0-8.0) 05/11/17 15:33 Ur Specific [place] 1.010 (1.003-1.030) 05/11/17 15:33 Urine Protein Negative mg/dL (NEGATIVE) 05/11/17 15:33 Urine Glucose (UA) Neg mg/dL (Normal) 05/11/17 15:33 Urine Ketones Negative mg/dL (NEGATIVE) 05/11/17 15:33 Urine Blood Negative (NEGATIVE) 05/11/17 15:33 Urine Nitrate Negative (NEGATIVE) 05/11/17 15:33 Urine Bilirubin Negative (NEGATIVE) 05/11/17 15:33 Urine Urobilinogen 2.0 mg/dL (0.2-1.0) 05/11/17 15:33 Ur Leukocyte Esterase Neg Giles/uL (Negative) 05/11/17 15:33 Urine RBC (Auto) < 1 /hpf (0-3) 05/11/17 15:33 Urine Microscopic WBC 1 /hpf (0-5) 05/11/17 15:33 - Hospital Course Hospital Course: 46 yo male with no significant PMH fell on top of a dumpster truck about 10 feet high landing on his left side. Broke both femur as heavy iron beam landed on him following the fall. Had IM nailing of the right femural fracture and ORIF of the left femural neck fracture at [facility] on 05/03/2017. He was transferred to [facility] on 05/10/2017 and had rehab. Patient did well and now is ready for discharged. Discharge Exam - Head Exam Head Exam: ATRAUMATIC - Eye Exam Eye Exam: Normal appearance - ENT Exam ENT Exam: Mucous Membranes Moist - Respiratory Exam Respiratory Exam: absent: Rales, Rhonchi, Wheezes, Respiratory Distress - Cardiovascular Exam Cardiovascular Exam: REGULAR RHYTHM, +S1, +S2 - GI/Abdominal Exam GI & Abdominal Exam: Soft. absent: Tenderness - Rectal Exam Rectal Exam: Deferred - Extremities Exam Extremities exam: pedal pulses present - Neurological Exam Neurological exam: Alert, Oriented x3 - Psychiatric Exam Psychiatric exam: Normal Affect - Skin Skin Exam: Dry, Intact Discharge Plan - Discharge Medications Prescriptions: Nicotine 14 mg/24 hr [Nicoderm CQ] 1 patch TD DAILY #14 patch Oxycodone HCl [Oxycodone HCl ER] 10 mg PO Q12 #10 tab.er.12h - Follow Up Plan Condition: GOOD Disposition: HOME/ ROUTINE
== END 2017-05-23 14:34 | disposition home health service (06) | DRG 561 ==
PROC: F07Z9FZ Gait Training/Functional Ambulation Treatment using Assistive, Adaptive, Supportive or Protective Equipment (ICD-10-PCS; principal; 2017-05-10)
PROC: F08Z4FZ Home Management Treatment using Assistive, Adaptive, Supportive or Protective Equipment (ICD-10-PCS; 2017-05-10)
PROC: F07M6FZ Therapeutic Exercise Treatment of Musculoskeletal System - Whole Body using Assistive, Adaptive, Supportive or Protective Equipment (ICD-10-PCS; 2017-05-10)
DX: S72.301D Unspecified fracture of shaft of right femur, subsequent encounter for closed fracture with routine healing (principal); S72.002D Fracture of unspecified part of neck of left femur, subsequent encounter for closed fracture with routine healing; Z86.018 Personal history of other benign neoplasm; W17.89XD Other fall from one level to another, subsequent encounter; Z87.891 Personal history of nicotine dependence